=== PATIENT | male | born 1955 | race Caucasian/White ===

== ENCOUNTER → 2024-07-17 09:37 | Outpatient (CLI) | payer MEDICARE, OTHER, SELFPAY ==
--- NOTE | 2024-07-21 19:31 | DI.NM.S_ITS ---
DATE OF SERVICE: 07/21/2024 EXERCISE PERFUSION STUDY INDICATION: Coronary artery calcification. RADIOPHARMACEUTICAL: 24.7 millicurie technetium-99m Myoview IV was injected at stress and 12.5 millicurie technetium-99m Myoview IV was injected at rest. CARDIAC STRESS: The patient underwent exercise perfusion study under the supervision of an attending staff. The patient walked on Daniel protocol for 10 minutes and 39 seconds, achieved maximum heart rate of 152, which was 99% of target heart rate. Functional aerobic impairment -38%. Achieved 12.8 METs of workload. Baseline rhythm was sinus. During stress, no convincing ischemic changes seen. Frequent PACs without any atrial fibrillation. However, short run of atrial tachycardia. Normal recovery. No chest pain. The patient had shortness of breath. Resting blood pressure 130/80 and peak blood pressure 190/80. RAW DATA: There is increased subdiaphragmatic activity. GATED STUDY: Stress LV ejection fraction 73% without any obvious wall motion abnormalities. Resting end-diastolic volume 172 mL. TID ratio 0.93, which is within normal limits. Lung/heart ratio 0.23, which is within normal limits. MYOCARDIAL PERFUSION SCAN: Stress supine and resting supine images revealed small size, mildly decreased perfusion of basal inferior wall and inferior apex which got resolved during stress prone images suggestive of diaphragmatic tissue attenuation artifact. Summed stress score zero and summed resting score zero. CONCLUSION: This is a normal myocardial perfusion study with evidence of diaphragmatic tissue attenuation artifact which got resolved during stress prone images. Excellent exercise tolerance. Normal hemodynamic response. Frequent PVCs during exercise with short run of atrial tachycardia. No obvious ischemic electrocardiographic changes. No chest pain. Preserved left ventricular function. Overall, low-risk myocardial perfusion scan. [place] - [facility]UL[facility]/ewa/ANA doc#: [id number]/job#: [id number] dd: 07/21/2024 17:00:00 dt: 07/21/2024 19:21:00 DICTATING MD/COPIES TO: Natty Denis MD COPIES MNE: LING;
== END ==
PROVIDERS: PCP Family Medicine; Referring Provider Family Medicine; Visit Provider Family Medicine
DX: I25.10 Atherosclerotic heart disease of native coronary artery without angina pectoris (principal); I25.84 Coronary atherosclerosis due to calcified coronary lesion
CPT/HCPCS: 78452; 93017; A9502